=== PATIENT | female | born 1990 | race Asian ===

== ENCOUNTER 2017-11-11 22:43 | Emergency (ER) | payer SELFPAY ==
[2017-11-11] MEDS ORDERED: Sodium Chloride 0.9% 1,000 ML IV ONE (23:31)
[2017-11-11] MEDS ORDERED: HYDROmorphone 1 mg/mL 1mL Syr IVP STA (23:33)
--- NOTE | 2017-11-11 23:42 | ED Physician Chart ---
ED Chief Complaint/HPI - Patient Information Date Seen:: 11/11/17 Time Seen:: 23:35 Chief Complaint:: abdominal pain History of Present Illness:: Patient has had right lower quadrant and suprapubic pain since this morning. She vomited 8-9 times and had no diarrhea. Patient was 8-9 weeks and had a miscarriage 3 days ago. 3 days ago before the miscarriage she fell striking her head and nose. Since then she's had a clear nasal discharge and 3- 4 times per day epistaxis. Allergies:: Allergies Allergy/AdvReac Type Severity Reaction Status Date / Time No Known Allergies Allergy Verified 11/11/17 23:10 Vitals:: Vital Signs - 8 hr 11/11/17 22:45 Temp 97.8 F HR 82 RR 18 BP 109/74 O2 Sat % 98 Historian:: Patient Review:: Nurse's Note Reviewed ED Review of Systems - Review of Systems General/Constitutional: No fever, No chills Skin: No skin lesions Head: Headache Eyes: No loss of vision ENT: Nasal drainage, Other (epistaxis) Neck: No neck pain Cardio Vascular: No chest pain Pulmonary: No SOB GI: Nausea, Vomiting, No diarrhea G/U: No dysuria Musculoskeletal: No bone or joint pain Endocrine: No polyuria Psychiatric: No prior psych history, No depression Hematopoietic: No bruising Allergic/Immuno: No urticaria Neurological: No syncope ED Past Medical History - Past Medical History Past Medical History: No significant medical hx Family History: HTN Social History: Non Smoker, No Alcohol Surgical History: Appendectomy, Cholecystectomy Psychiatricy History: None Medication: None Family Medical History - Family Member Mother History Unknown: Yes ED Physical Exam - Physical Examination General/Constitutional: Well-developed, well-nourished, Alert, No distress Head: Atraumatic Eyes: Lids, conjuctiva normal, PERRL Skin: Nl inspection, No rash, No skin lesions, No ecchymosis ENMT: External ears, nose nl, TM canals nl, Nasal exam nl, Oropharynx nl, Tonsils nl Neck: No nuchal rigidity Respiratory: Nl effort/Exclusion, Clear to Auscultation, No Wheeze/Rhonchi/Rales Cardio Vascular: RRR GI: No organomegaly, No hernia, Normal BS's, No mass/bruits Other GI comments:: Right lower quadrant and suprapubic tenderness : No CVA tenderness Extremities: Normal digits & nails Neuro/Psych: No focal deficits Misc: Normal back ED Labs/Radiology/EKG Results - Lab Results Comments:: Chest x-ray showed cardiomegaly and right sided pleural effusion ED Septic Shock - . Is Septic Shock (SBP<90, OR Lactate>4 mmol\L) present?: No - <6hrs of presentation: Vital Signs: Vital Signs - 8 hr 11/11/17 22:45 Temp 97.8 F HR 82 RR 18 BP 109/74 O2 Sat % 98 ED Reassessment (Disposition) - Reassessment Reassessment Condition:: Unchanged - Diagnosis Diagnosis:: Clotted permacath; renal failure on dialysis; diabetes - Patient Disposition Admitted to:: Med/Surg Spoke to:: Carlota Copeland Admitting Medical Physician:: Carlota Copeland
[2017-11-11 23:43] LABS: % LYMPHOCYTES 32.1 % (20.0-50.0); % NEUTROPHILS 58.9 % (40.0-80.0); EOSINOPHILE ABSOLUTE 0.5 Th/cmm (0.1-0.4); HEMATOCRIT 40.4 % (41.0-60); HEMOGLOBIN 13.3 gm/dL (12-16); LYMPHOCYTE ABSOLUTE 2.9 Th/cmm (1.5-3.0); MEAN CELL VOLUME 88.3 fl (81-100); MEAN CORPUSCULAR HGB CONC 32.9 pg (28.0-36.0); MEAN PLATELET VOLUME 8.2 fl; MONOCYTE ABSOLUTE 0.4 Th/cmm (0.3-1.0); NEUTROPHILE ABSOLUTE 5.2 Th/cmm (1.8-8.0); PLATELET COUNT 256 Th/cmm (150-400); RED BLOOD COUNT 4.58 Mil/cmm (3.80-5.10); RED CELL DISTRIBUTION WIDTH 11.9 % (11.5-20.0)
[2017-11-11] MEDS ORDERED: HYDROmorphone 1 mg/mL 1mL Syr ONE (23:45)
[2017-11-11 23:46] LABS: URINE MICROSCOPIC INDICATED? YES; URINE SOURCE RANDOM
[2017-11-11 23:50] LABS: URINE BILIRUBIN NEGATIVE (NEGATIVE); URINE BLOOD NEGATIVE (NEGATIVE); URINE GLUCOSE (UA) NEGATIVE (NEGATIVE); URINE KETONE NEGATIVE (NEGATIVE); URINE LEUKOCYTE ESTERASE NEGATIVE (NEGATIVE); URINE NITRATE NEGATIVE (NEGATIVE); URINE PROTEIN NEGATIVE (NEGATIVE); URINE UROBILINOGEN 0.2 E.U./dL (0.2 - 1.0)
[2017-11-11 23:54] LABS: URINE CLARITY CLEAR (CLEAR); URINE COLOR YELLOW; URINE EPITHELIAL CELLS MODERATE /lpf (FEW); URINE RBC 0-2 /hpf (0-5); URINE WBC 0-2 /hpf (0-5)
[2017-11-11 23:55] LABS: URINE BACTERIA OCCASIONAL /hpf (NONE SEEN)
[2017-11-11 23:57] LABS: ANION GAP 11.1 (7.0-16.0); BUN - UREA NITROGEN 14 mg/dL (7-25); CALCIUM SERUM 9.6 mg/dL (8.6-10.3); CARBON DIOXIDE 24.6 mEq/L (21.0-31.0); CHLORIDE 105 mEq/L (98-107); CREATININE - SERUM 0.7 mg/dL (0.6-1.2); GFR AFRICAN-AMERICAN > 60.0 ml/min (>90); GFR NON AFRICAN-AMERICAN > 60.0 ml/min; GLUCOSE 93 mg/dL (70-105); POTASSIUM SERUM 3.7 mEq/L (3.5-5.1); SODIUM SERUM 137 mEq/L (136-145)
[2017-11-12] MEDS ORDERED: HYDROmorphone 1 mg/mL 1mL Syr IVP STA (02:05)
[2017-11-12] MEDS ORDERED: HYDROmorphone 1 mg/mL 1mL Syr ONE (02:07)
--- NOTE | 2017-11-12 09:18 | Diagnostic Imaging Report ---
Ultrasound OB HISTORY: Miscarriage 3 days ago, pain and vaginal spotting COMPARISON: None Technique: Longitudinal and transverse sonographic sector images of the pelvis were obtained transabdominally only. FINDINGS: The exam is limited as transvaginal images were not obtained. The uterus measures 9.3 x 4.4 x 4.8 cm. The endometrial echo complex measures 9 mm. No intrauterine gestation identified. The ovaries were not visualized. No evidence of free fluid in the pelvis. IMPRESSION: No intrauterine gestation identified. Please correlate patient's clinical and history of recent miscarriage. The endometrium measures 9 mm, slightly prominent. The significance of this finding should be correlated clinically. No evidence of free fluid in the pelvis. The ovaries were not visualized
== END 2017-11-12 02:45 | disposition home or self-care (01) ==
LOC: ER 22:43
DX: E11.9 Type 2 diabetes mellitus without complications (principal); Z99.2 Dependence on renal dialysis; Z90.49 Acquired absence of other specified parts of digestive tract
CPT/HCPCS: 99285; 96374; 96375; 96376; 86900; 86850; 36415 ×2; 86901; 84702; 85025; 81001; 81025; 83735; 80048; 76801; J2405; J1170; J1200; J7030

== ENCOUNTER 2017-12-12 20:38 | Emergency (ER) | payer SELFPAY ==
--- NOTE | 2017-12-12 21:36 | ED Physician Chart ---
ED Chief Complaint/HPI - Patient Information Date Seen:: 12/12/17 Time Seen:: 21:20 Chief Complaint:: lower abdominal pain History of Present Illness:: Patient's had lower abdominal pain last 3 hours. She is nauseated but had no vomiting or diarrhea. Patient had a miscarriage on 11/07/2017 after which she had a D&C at which she thinks was [facility]. Allergies:: Allergies Allergy/AdvReac Type Severity Reaction Status Date / Time No Known Allergies Allergy Verified 11/12/17 01:29 Vitals:: Vital Signs - 8 hr 12/12/17 21:00 Temp 98.2 F HR 119 RR 20 BP 102/83 O2 Sat % 96 Historian:: Patient Review:: Nurse's Note Reviewed ED Review of Systems - Review of Systems General/Constitutional: No fever, No chills Skin: No skin lesions Head: No headache Eyes: No loss of vision ENT: No earache Neck: No neck pain, No swelling Cardio Vascular: No chest pain, No palpitations Pulmonary: No SOB GI: Nausea, No vomiting, No diarrhea, Pain G/U: No dysuria Musculoskeletal: No bone or joint pain, No back pain, No muscle pain Endocrine: No polyuria, No polydipsia Psychiatric: No prior psych history, No depression, No anxiety Hematopoietic: No bruising Allergic/Immuno: No urticaria Neurological: No syncope Family Medical History - Family Member Mother History Unknown: Yes ED Physical Exam - Physical Examination General/Constitutional: Well-developed, well-nourished, Alert, No distress Head: Atraumatic Eyes: Lids, conjuctiva normal, PERRL Skin: Nl inspection, No rash ENMT: External ears, nose nl, TM canals nl, Nasal exam nl, Lips, teeth, gums nl Neck: No nuchal rigidity Respiratory: Nl effort/Exclusion, Clear to Auscultation, No Wheeze/Rhonchi/Rales Cardio Vascular: RRR, No murmur, gallop, rubs GI: No organomegaly, No hernia, Normal BS's Other GI comments:: Lower abdominal tenderness : No CVA tenderness, NL external genitalia, No discharge Other comments:: Bimanual pelvic exam: 2.5 out of 4 cervical motion and suprapubic tenderness; 2 out of 4 bilateral adnexal tenderness Extremities: Normal digits & nails Neuro/Psych: No focal deficits Misc: Normal back, No paraspinal tenderness ED Labs/Radiology/EKG Results - Lab Results Results: Laboratory Results - last 24 hr 12/12/17 12/12/17 12/12/17 21:10 21:10 21:39 WBC 5.1 D RBC 4.83 Hgb 14.3 Hct 41.9 MCV 86.8 MCH 29.7 MCHC Differential 34.2 RDW 12.2 Plt Count 248 MPV 7.5 Neutrophils % 77.4 Lymphocytes % 17.4 L Monocytes % 3.1 Eosinophils % 1.6 Basophils % 0.5 Sodium Potassium Chloride Carbon Dioxide Anion Gap BUN Creatinine Est GFR ( Amer) Est GFR (Non-Af Amer) BUN/Creatinine Ratio Glucose Calcium Urine Source RANDOM Urine Color YELLOW Urine Clarity CLEAR Urine pH 6.0 Ur Specific [place] >= 1.030 Urine Protein TRACE Urine Glucose (UA) NEGATIVE Urine Ketones TRACE Urine Blood NEGATIVE Urine Nitrate NEGATIVE Urine Bilirubin NEGATIVE Urine Urobilinogen 0.2 Ur Leukocyte Esterase NEGATIVE Urine RBC NONE SEEN Urine WBC 2-5 Ur Epithelial Cells FEW Urine Bacteria FEW Urine Mucus MANY Urine Test NEGATIVE 12/12/17 21:39 WBC RBC Hgb Hct MCV MCH MCHC Differential RDW Plt Count MPV Neutrophils % Lymphocytes % Monocytes % Eosinophils % Basophils % Sodium 135 L Potassium 3.8 Chloride 104 Carbon Dioxide 23.3 Anion Gap 11.5 BUN 13 Creatinine 0.7 Est GFR ( Amer) > 60.0 Est GFR (Non-Af Amer) > 60.0 BUN/Creatinine Ratio 18.6 Glucose 93 Calcium 9.6 Urine Source Urine Color Urine Clarity Urine pH Ur Specific [place] Urine Protein Urine Glucose (UA) Urine Ketones Urine Blood Urine Nitrate Urine Bilirubin Urine Urobilinogen Ur Leukocyte Esterase Urine RBC Urine WBC Ur Epithelial Cells Urine Bacteria Urine Mucus Urine Test ED Septic Shock - . Is Septic Shock (SBP<90, OR Lactate>4 mmol\L) present?: No - <6hrs of presentation: Vital Signs: Vital Signs - 8 hr 12/12/17 21:00 Temp 98.2 F HR 119 RR 20 BP 102/83 O2 Sat % 96 ED Reassessment (Disposition) - Reassessment Reassessment:: Patient is on Bactrim DS for an apparent MRSA abscess in her groin which she says is now healed. Instructed patient to stop the Bactrim DS. Will prescribe doxycycline 100 mg twice a day for 14 days and give Rocephin 250 mg intramuscularly in the emergency department before discharge. Patient also to receive. Toradol 30 mg intramuscularly for her pain Reassessment Condition:: Unchanged - Diagnosis Diagnosis:: Pelvic inflammatory disease - Aftercare/Follow up Instructions Medication Prescribed:: See assessment - Patient Disposition Discharge/Transfer:: Home Condition at Disposition:: Stable, Unchanged
[2017-12-12 21:46] LABS: % BASOPHILS 0.5 % (0.0-2.0); % EOSINOPHILS 1.6 % (0.0-5.0); % LYMPHOCYTES 17.4 % (20.0-50.0); % MONOCYTES 3.1 % (2.0-10.0); % NEUTROPHILS 77.4 % (40.0-80.0); EOSINOPHILE ABSOLUTE 0.1 Th/cmm (0.1-0.4); HEMATOCRIT 41.9 % (41.0-60); HEMOGLOBIN 14.3 gm/dL (12-16); LYMPHOCYTE ABSOLUTE 0.9 Th/cmm (1.5-3.0); MEAN CELL VOLUME 86.8 fl (81-100); MEAN CORPUSCULAR HEMOGLOBIN 29.7 pg (27.0-31.0); MEAN CORPUSCULAR HGB CONC 34.2 pg (28.0-36.0); MEAN PLATELET VOLUME 7.5 fl; MONOCYTE ABSOLUTE 0.2 Th/cmm (0.3-1.0); NEUTROPHILE ABSOLUTE 3.9 Th/cmm (1.8-8.0); PLATELET COUNT 248 Th/cmm (150-400); RED BLOOD COUNT 4.83 Mil/cmm (3.80-5.10); RED CELL DISTRIBUTION WIDTH 12.2 % (11.5-20.0)
[2017-12-12 21:47] LABS: URINE MICROSCOPIC INDICATED? YES; URINE SOURCE RANDOM
[2017-12-12 21:54] LABS: URINE BILIRUBIN NEGATIVE (NEGATIVE); URINE BLOOD NEGATIVE (NEGATIVE); URINE CLARITY CLEAR (CLEAR); URINE COLOR YELLOW; URINE GLUCOSE (UA) NEGATIVE (NEGATIVE); URINE KETONE TRACE mg/dL (NEGATIVE); URINE LEUKOCYTE ESTERASE NEGATIVE (NEGATIVE); URINE NITRATE NEGATIVE (NEGATIVE); URINE PROTEIN TRACE mg/dL (NEGATIVE); URINE UROBILINOGEN 0.2 E.U./dL (0.2 - 1.0)
[2017-12-12 21:56] LABS: WHITE BLOOD COUNT 5.1 Th/cmm (4.8-10.8)
[2017-12-12 22:03] LABS: ANION GAP 11.5 (7.0-16.0); BUN - UREA NITROGEN 13 mg/dL (7-25); CALCIUM SERUM 9.6 mg/dL (8.6-10.3); CARBON DIOXIDE 23.3 mEq/L (21.0-31.0); CHLORIDE 104 mEq/L (98-107); CREATININE - SERUM 0.7 mg/dL (0.6-1.2); GFR AFRICAN-AMERICAN > 60.0 ml/min (>90); GFR NON AFRICAN-AMERICAN > 60.0 ml/min; GLUCOSE 93 mg/dL (70-105); POTASSIUM SERUM 3.8 mEq/L (3.5-5.1); SODIUM SERUM 135 mEq/L (136-145)
[2017-12-12 22:09] LABS: URINE BACTERIA FEW /hpf (NONE SEEN); URINE EPITHELIAL CELLS FEW /lpf (FEW); URINE RBC NONE SEEN /hpf (0-5)
== END 2017-12-12 23:22 | disposition left against medical advice (07) ==
LOC: ER 20:38
DX: N73.9 Female pelvic inflammatory disease, unspecified (principal)
CPT/HCPCS: 99284; 36415; 84702; 85025; 81001; 81025; 80048; J1885; J0696; Z7502